=== PATIENT | male | born 1995 | race African-American/Black ===

== ENCOUNTER 2016-08-04 00:31 | Emergency (ER) | payer BC ==
[~2016-08-04 00:31] MED LIST: ALBUTEROL 0.5ML INH; ALBUTEROL17 GM INH; PREDNISONE PO; ZITHROMAX PO
== END 2016-08-04 06:01 | disposition home or self-care (01) ==
LOC: CED 00:31
DX: S46.911A Strain of unspecified muscle, fascia and tendon at shoulder and upper arm level, right arm, initial encounter (principal); V49.00XA Driver injured in collision with unspecified motor vehicles in nontraffic accident, initial encounter
CPT/HCPCS: 99283

== ENCOUNTER 2016-08-12 14:34 | Emergency (ER) | payer OTHER, BC ==
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
== END 2016-08-12 16:04 | disposition home or self-care (01) ==
LOC: CED 14:34 → CFTX 14:34
DX: S13.4XXA Sprain of ligaments of cervical spine, initial encounter (principal); S23.3XXA Sprain of ligaments of thoracic spine, initial encounter; J45.909 Unspecified asthma, uncomplicated; V49.40XA Driver injured in collision with unspecified motor vehicles in traffic accident, initial encounter; Y93.89 Activity, other specified; Y92.410 Unspecified street and highway as the place of occurrence of the external cause
CPT/HCPCS: 72040; 72072; 99284